=== PATIENT | female | born 1985 | race African-American/Black ===

== ENCOUNTER 2021-11-24 11:13 | Inpatient (IN) | payer MEDICAID ==
[~2021-11-24] VITALS: Ht 180.3 cm; Wt 65.8 kg
[2021-11-24 12:13] LABS: MEAN CORPUSCULAR HEMOGLOBIN 14.2 pg (28.0-32.0); MEAN PLATELET VOLUME 8.1 fl (7.4-10.4); PLATELET 104 x1000/uL (130-400); RED BLOOD CELL COUNT 2.72 mill/uL (4.2-5.4); RED CELL DISTRIBUTION WIDTH 29.1 % (11.6-14.6)
[2021-11-24 12:19] LABS: CHLORIDE 111 mEq/L (98-107)
[2021-11-24 12:24] LABS: HEMATOCRIT. 14.7 % (36.0-48.0); HEMOGLOBIN. 3.9 g/dL (12.0-16.0)
[2021-11-24 12:47] LABS: HCG SCREEN NEGATIVE
[2021-11-24] MEDS ORDERED: ONDANSETRON HCL 4MG/2ML INJ IV PRN (13:45)
[2021-11-24] MEDS ORDERED: ACETAMINOPHEN 325MG TABLET PO PRN (13:45)
[2021-11-24] MEDS ORDERED: GUAIFENESIN 200MG/10ML SUGAR FREE UDC PO PRN (13:45)
[2021-11-24] MEDS ORDERED: HYDROCODONE/ACETAMINOPHEN 5/325MG TABLET PO PRN (13:45)
[2021-11-24] MEDS ORDERED: DOCUSATE SODIUM 100MG CAPSULE PO PRN (13:45)
[2021-11-24] MEDS ORDERED: CLONIDINE 0.1MG TABLET PO PRN (13:45)
[2021-11-24] MEDS ORDERED: MAGNESIUM/ALUMINUM HYDROXIDE/SIMETHICONE 30ML UDC PO PRN (13:45)
[2021-11-24] MEDS ORDERED: NALOXONE HCL 0.4MG/ML VIAL IV PRN (14:00)
[2021-11-24 14:12] LABS: PLATELET ESTIMATE SLIGHTLY DECREASED
[2021-11-24 14:30] LABS: TOTAL IRON BINDING CAPACITY 458 ug/dL (250-450)
[2021-11-24] MEDS: FERROUS SULFATE 325MG TABLET PO SCH (17:20)
[2021-11-25] VITALS (15 sets, daily range): BP systolic 97–122; BP diastolic 58–76
[2021-11-25 06:45] LABS: BASOPHILS % 2.1 % (0.0-2.0); EOSINOPHILS % 3.6 % (0.0-5.0); HEMATOCRIT. 21.3 % (36.0-48.0); LYMPHOCYTES % 35.8 % (20.0-50.0); MEAN CORPUSCULAR HEMOGLOBIN 19.8 pg (28.0-32.0); MEAN CORPUSCULAR VOLUME 65.7 fL (81.0-99.0); MEAN PLATELET VOLUME 8.6 fl (7.4-10.4); MONOCYTES % 11.9 % (2.0-8.0); NEUTROPHILS % 46.6 % (40.0-76.0); PLATELET 76 x1000/uL (130-400); RED BLOOD CELL COUNT 3.24 mill/uL (4.2-5.4); RED CELL DISTRIBUTION WIDTH 39.3 % (11.6-14.6)
[2021-11-25 06:49] LABS: CHLORIDE 113 mEq/L (98-107)
[2021-11-25 08:11] LABS: HEMOGLOBIN. 6.4 g/dL (12.0-16.0)
[2021-11-25] MEDS: FERROUS SULFATE 325MG TABLET PO SCH ×3 (09:59→17:37)
[2021-11-25 20:11] LABS: HEMATOCRIT 26.2 % (36.0-48.0); HEMOGLOBIN 8.2 g/dL (12.0-16.0)
== END 2021-11-25 21:00 | disposition home or self-care (01) | DRG 663 ==
LOC: ER 11:13 → MICUSO 12:42 → 6WST 22:36
PROVIDERS: ADMIT Hospitalist; ATTEND Hospitalist
PROC: 30233N1 Transfusion of Nonautologous Red Blood Cells into Peripheral Vein, Percutaneous Approach (ICD-10-PCS; principal; 2021-11-24)
DX: D50.9 Iron deficiency anemia, unspecified (principal); N92.0 Excessive and frequent menstruation with regular cycle; Z20.822 Contact with and (suspected) exposure to COVID-19; Z91.19 Patient's noncompliance with other medical treatment and regimen; Z79.899 Other long term (current) drug therapy
CPT/HCPCS: 36415; 80053; 83540; 83550; 84703; 85014; 85018; 85025; 86850; 86900; 86920; 87426; 99285; J7040; P9016